=== PATIENT | female | born 1945 | race Caucasian/White ===

== ENCOUNTER → 2018-12-23 | Outpatient (CLI) | payer MEDICARE ==
--- NOTE | 2018-12-25 18:22 | SLEEP ---
[address] [address] SLEEP STUDY REPORT Name: GABRIEL MAYORGA Room: [facility]#: [id number] Admission: 12/23/18 Attend Phys: Kelly Gonzalez Discharge: Date of : 49 Report #: [id number] THIS REPORT FOR: //name// CC: MARYLIN GUZMAN DO Marylin Guzman This study has been reviewed in its entirety by a board certified sleep specialist DATE OF SERVICE: 12/23/2018 SLEEP STUDY ATTENDING PHYSICIAN: Dr. Marylin Guzman. Patient is a 73-year-old who weighs 165 pounds with a BMI of 25.8. The patient's Kingsley score was only 3. The patient underwent diagnostic sleep study performed at [facility]. During the night study, the patient spent 471 minutes in bed and slept for 297 minutes with a sleep efficiency of 63%. Sleep latency was prolonged at 73 minutes with a REM latency of 127 minutes. Overall, sleep architecture showed normal stage 1 and stage 2 sleep, increased slow wave and normal REM sleep. During the night study, the patient had no apneas and 13 hypopneas. The patient's apnea-hypopnea index for the entire night was 2.6 per hour with a REM index of 8 per hour and a supine index of 2.3 per hour. EKG monitoring revealed normal sinus rhythm. Average heart rate was 56 beats per minute. No arrhythmias observed. PLMS were seen at an index of 0.8 per hour and 0.2 per hour caused EEG arousals. Nocturnal oximetry study revealed an average oxygen saturation of 96% with a lowest of 89%. Due to low AHI, the patient did not meet the split night criteria for CPAP initiation. IMPRESSION: 1. No clinically significant sleep disordered breathing. The patient's apnea-hypopnea index for the entire night was 2.6 per hour. 2. No clinically significant periodic limb movements of sleep. 3. No clinically significant nocturnal hypoxia. 4. Reduced sleep efficiency resulting from sleep onset and [place] [id number] SLEEP STUDY REPORT Name: GABRIEL MAYORGA ANN Room: [facility]#: [id number] Admission: 12/23/18 Attend Phys: Kelly Gonzalez Discharge: Date of : 49 Report #: [id number] RECOMMENDATIONS: 1. The patient did not meet the split night criteria for CPAP initiation due to low AHI. 2. The patient's insomnia could be contributing to the patient's symptoms and this should be further evaluated and treated according to the etiology. 3. Avoid [employer] depressants. <ELECTRONICALLY SIGNED> By: Viral Etienne MD 12/25/18 1822 1729 [id number] Norm Etienne MD /nt
== END ==
LOC: M.SLEEPLAB 19:57
DX: G47.9 Sleep disorder, unspecified (principal)